=== PATIENT | female | born 1940 | race Caucasian/White ===

== ENCOUNTER 2016-11-17 16:51 | Emergency (ER) | payer OTHER ==
[2016-11-17 17:04] VITALS: TEMP 98.6; O2SAT 97
--- NOTE | 2016-11-17 17:40 | EDPHY ---
HPI/HX/ROS/PE/MDM Narrative: CHIEF COMPLAINT: Shortness of breath. HISTORY OF PRESENT ILLNESS: The patient is a 76-year-old female presenting with shortness of breath s/p abdominal surgery 11/07. The patient had a second repair of a hiatal hernia. Over the past few days the patient has developed shortness of breath on exertion. She feels short of breath when just walking around her living room. She has associated dizziness and lightheadedness. The patient spoke to her hand coper and saw her PCP today. She was sent here to rule out pulmonary embolism. The patient has no history of PE or DVT. She does have atrial fibrillation which she states causes shortness of breath similar to what she is experiencing. The patient has been on an all liquid diet. She is not on anticoagulants. She denies lower extremity pain or swelling. No fever, cold, or cough. She denies chest pain, palpitations, vomiting, diarrhea, or urinary complaints. REVIEW OF SYSTEMS: Aside from elements discussed in the HPI, a comprehensive 10-point review of systems was reviewed and is negative. PAST MEDICAL HISTORY: Hiatal hernia repair. SOCIAL HISTORY: Nonsmoker. VITAL SIGNS: Reviewed by me GENERAL: Well-developed, well-nourished, resting comfortably in no respiratory distress. HEENT: Atraumatic. Eyes: No icterus, no injection. Mouth: moist mucous membranes. No erythema or lesions. Neck: supple with no adenopathy. LUNGS: Clear to auscultation bilaterally, no wheezes, rhonchi or rales. CARDIAC: Regular rate and rhythm, no rubs, murmurs or gallops. ABDOMEN: Soft, nontender, nondistended, bowel sounds normal. BACK: No CVA tenderness. EXTREMITIES: No trauma. No edema. Range of motion is normal throughout. NEURO: Alert and oriented, grossly nonfocal. SKIN: Warm and dry, no rash. PSYCHIATRIC: Normal mentation, no agitation. Portions of this note were transcribed by a medical review specialist. I personally performed a history, physical exam, medical decision making, and confirmed accuracy of information the transcribed note. ED Course: The patient is a 76-year-old female s/p hiatal hernia repair, presenting with shortness of breath. The patient fells asymptomatic at rest, but states symptoms become more severe with exertion. On exam the patient has clear lungs. Her abdomen is slightly distended, she has multiple healing incisions. Plan for CT to look for PE. I will check labs and EKG. The 12 lead EKG was interpreted by myself. See hard copy and/or "tracemaster" electronic copy for interpretation. Sinus rhythm. The differential diagnosis for the patient's shortness of breath and hypoxemia included but was not limited to pneumonia, myocardial infarction, postsurgical atelectasis, cardiac causes, congestive heart failure, and pulmonary embolus. CT of the chest was obtained. I viewed the images myself on the PACS system. No PE. See the full radiology report in the imaging section. 8:15 p.m.: Lab work is unremarkable. CT is negative for PE, but does demonstrate atelectasis. I discussed findings with the patient. She agrees with plan to be discharged home. Patient was encouraged to use incentive spirometer. She should return or follow up with her primary care physician if she develops a fever, cough, worsening shortness of breath, swelling in the legs , or other concerns. - Data Points Imaging Results: Imaging Impressions Chest/Thorax CTA 11/17/16 17:48 Impression: 1. No evidence pulmonary thromboembolic disease. 2. Right basilar atelectasis and elevation of the right hemidiaphragm. No central mucous plugging or right hilar mass. 3. No edema, pneumonia, or effusion. 4. Postsurgical changes at the esophagogastric junction within normal limit. 5. Left lower lobe pulmonary nodule, unchanged. Findings discussed with Emergency Department physician, Kadie Caraballo M.D., on November 17, 2016 at 2000 hours. Laboratory Results: Laboratory Results 11/17/16 18:51 11/17/16 18:51 11/17/16 11/17/16 11/17/16 18:51 18:51 18:51 WBC 6.89 10^3/uL 10^3/uL (3.80-9.50) RBC 4.46 10^6/uL 10^6/uL (4.18-5.33) Hgb 13.8 g/dL g/dL (12.6-16.3) Hct 41.1 % % (38.0-47.0) MCV 92.2 fL fL (81.5-99.8) MCH 30.9 pg pg (27.9-34.1) MCHC 33.6 g/dL g/dL (32.4-36.7) RDW 12.9 % % (11.5-15.2) Plt Count 268 10^3/uL 10^3/uL (150-400) MPV 9.6 fL fL (8.7-11.7) Neut % (Auto) 60.5 % % (39.3-74.2) Lymph % (Auto) 24.2 % % (15.0-45.0) Bill[place] % (Auto) 12.6 % % (4.5-13.0) Eos % (Auto) 1.9 % % (0.6-7.6) Baso % (Auto) 0.4 % % (0.3-1.7) Nucleat RBC Rel Count 0.0 % % (0.0-0.2) Absolute Neuts (auto) 4.16 10^3/uL 10^3/uL (1.70-6.50) Absolute Lymphs (auto) 1.67 10^3/uL 10^3/uL (1.00-3.00) Absolute Monos (auto) 0.87 10^3/uL H 10^3/uL (0.30-0.80) Absolute Eos (auto) 0.13 10^3/uL 10^3/uL (0.03-0.40) Absolute Basos (auto) 0.03 10^3/uL 10^3/uL (0.02-0.10) Absolute Nucleated RBC 0.00 10^3/uL 10^3/uL (0-0.01) Immature Gran % 0.4 % % (0.0-1.1) Immature Gran # 0.03 10^3/uL 10^3/uL (0.00-0.10) PT 14.6 SEC SEC (12.0-15.0) INR 1.15 (0.83-1.16) Sodium 133 mEq/L L mEq/L (134-144) Potassium 4.4 mEq/L mEq/L (3.5-5.2) Chloride 99 mEq/L mEq/L (97-110) Carbon Dioxide 22 mEq/l mEq/l (22-31) Anion Gap 12 mEq/L mEq/L (8-16) BUN 12 mg/dL mg/dL (7-23) Creatinine 0.8 mg/dL mg/dL (0.6-1.0) Estimated GFR > 60 Glucose 73 mg/dL mg/dL (70-100) Calcium 9.8 mg/dL mg/dL (8.5-10.4) Total Bilirubin 0.9 mg/dL mg/dL (0.1-1.4) Conjugated Bilirubin 0.5 mg/dL mg/dL (0.0-0.5) Unconjugated Bilirubin 0.4 mg/dL mg/dL (0.0-1.1) AST 30 IU/L IU/L (14-46) ALT 45 IU/L IU/L (9-52) Alkaline Phosphatase 61 IU/L IU/L (38-126) Troponin I < 0.012 ng/mL ng/mL (0-0.034) Total Protein 7.2 g/dL g/dL (6.3-8.2) Albumin 4.4 g/dL g/dL (3.5-5.0) Medications Given: Discontinued Medications Sodium Chloride (Ns) 500 mls @ 0 mls/hr IV ONCE ONE PRN Reason: As Directed Stop: 11/17/16 17:46 Last Admin: 11/17/16 18:57 Dose: 500 mls General Time Seen by Provider: 11/17/16 17:24 Initial Vital Signs: Initial Vital Signs Temperature (C) 37 C 11/17/16 17:00 Heart Rate 82 11/17/16 17:00 Respiratory Rate 18 11/17/16 17:00 Blood Pressure 150/99 H 11/17/16 17:00 O2 Sat (%) 97 11/17/16 17:00 O2 Delivery Mode Room Air Allergies/Adverse Reactions: oxycodone Allergy (Mild, Verified 11/17/16 17:01) Vomiting Home Medications: Medication Instructions Recorded Aspirin EC [Aspirin EC 81 mg (*)] 81 mg PO DAILY 10/29/15 Bupropion HCl [Wellbutrin Xl] 300 mg PO DAILY 10/29/15 Esomeprazole Mag Trihydrate 40 mg PO DAILY 10/29/15 [Nexium] Ferrous Sulfate [Ferrous Sulf 325 325 mg PO DAILY 10/29/15 MG (*)] Herbals/Supplements -Info Only 1 ea PO DAILY 10/29/15 Levothyroxine [Synthroid 88 mcg 88 mcg PO DAILY06 10/29/15 (*)] Magnesium Oxide [Magnesium] 500 mg PO DAILY 10/29/15 Multivitamins W-Minerals [Thera M 1 each PO DAILY 10/29/15 Plus Tablet (*)] Vitamin B Complex [B Complex] 1 each PO DAILY 10/29/15 Polyethylene Glycol 3350 [Miralax 17 gm PO DAILY PRN #0 pkt 11/25/15 17 gm (*)] Sennosides/Docusate Sodium 1 - 2 tab PO BID #0 tab 11/25/15 [Senokot-S] Tapentadol HCl [Nucynta 50 MG (*)] 50 mg PO Q4 PRN #30 tab 11/25/15 traMADol [Ultram 50 mg (*)] 50 mg PO Q6 PRN #30 tab 11/25/15 Departure - Departure Disposition: Home, Routine, Self-Care Clinical Impression: Shortness of breath, Atelectasis, right Condition: Good Instructions: How to Use an Incentive Spirometer (ED), Dyspnea (ED), Atelectasis (ED) Additional Instructions: 1. Please begin using the incentive spirometry several times a day as directed. 2. Follow up with your primary care physician if you're shortness of breath is not resolving in the next 1-2 days. 3. Be seen urgently if you develop a fever, worsening shortness of breath, anterior chest pain, lightheadedness, dizziness, fainting, or other concerns. Referrals: Mandy Estrada MD [Primary Care Provider] - As per Instructions Report Scribed for: Kadie Caraballo Report Scribed by: Agatha Briceño Date of Report: 11/17/16 Time of Report: 17:41
[2016-11-17] MEDS ORDERED: NS 500 ML IV ONE (17:45)
[2016-11-17 18:58] LABS: % IMMATURE GRANULYOCYTES 0.4 % (0.0-1.1); ABSOLUTE IMMATURE GRANULOCYTES 0.03 10^3/uL (0.00-0.10); ADD DIFF? NO; ADD MORPH? NO; ADD SCAN? NO; ATYPICAL LYMPHOCYTE FLAG 0 (0-99); FRAGMENT RBC FLAG 20 (0-99); HEMATOCRIT 41.1 % (38.0-47.0); HEMOGLOBIN 13.8 g/dL (12.6-16.3); LEFT SHIFT FLG 0 (0-99); LIPEMIA HEMOLYSIS FLAG 80 (0-99); MEAN CELL HEMOGLOBIN 30.9 pg (27.9-34.1); MEAN CELL HEMOGLOBIN CONCENTR. 33.6 g/dL (32.4-36.7); MEAN CELL VOLUME 92.2 fL (81.5-99.8); MEAN PLATELET VOLUME 9.6 fL (8.7-11.7); PLATELET CLUMPS FLAG 20 (0-99); PLATELET COUNT 268 10^3/uL (150-400); RED BLOOD CELL COUNT 4.46 10^6/uL (4.18-5.33); RED CELL DISTRIBUTION WIDTH 12.9 % (11.5-15.2)
[2016-11-17 19:09] LABS: ALANINE AMINOTRANSFERASE 45 IU/L (9-52); ALBUMIN 4.4 g/dL (3.5-5.0); ALKALINE PHOSPHATASE 61 IU/L (38-126); ANION GAP 12 mEq/L (8-16); ASPARTATE AMINOTRANSFERASE 30 IU/L (14-46); BILIRUBIN,TOTAL 0.9 mg/dL (0.1-1.4); BILIRUBIN-CONJUGATED 0.5 mg/dL (0.0-0.5); BILIRUBIN-UNCONJUGATED 0.4 mg/dL (0.0-1.1); CALCIUM 9.8 mg/dL (8.5-10.4); CARBON DIOXIDE 22 mEq/l (22-31); CHLORIDE 99 mEq/L (97-110); CREATININE 0.8 mg/dL (0.6-1.0); GLOMERULAR FILTRATION RATE > 60; GLUCOSE 73 mg/dL (70-100); INR 1.15 (0.83-1.16); POTASSIUM 4.4 mEq/L (3.5-5.2); PROTIME(PATIENT) 14.6 SEC (12.0-15.0); SODIUM 133 mEq/L (134-144); TOTAL PROTEIN 7.2 g/dL (6.3-8.2)
[2016-11-17] MEDS ORDERED: IOPAMIDOL (ISOVUE 370) 100 ML BTL IV ONE (19:13)
[2016-11-17 19:20] LABS: TROPONIN I < 0.012 ng/mL (0-0.034)
[2016-11-17 20:17] VITALS: BP 148/80; PULSE 74; RESP 17
--- NOTE | 2016-11-18 02:42 | CPEKG ---
Heart Rate: 75 RR Interval: 800 P-R Interval: 176 QRSD Interval: 98 QT Interval: 408 QTC Interval: 456 P [place]: 68 QRS [place]: 66 T Wave [place]: 15 EKG Severity - NORMAL ECG - EKG Impression: SINUS RHYTHM Electronically Signed By: Horace Lancaster 18-Nov-2016 08:51:18
== END 2016-11-17 20:54 | disposition home or self-care (01) ==
DX: J98.11 Atelectasis (principal); Z79.82 Long term (current) use of aspirin
CPT/HCPCS: 71275; 93005; 99285; Q9967

== ENCOUNTER 2017-05-01 10:59 | Day surgery (SDC) | payer OTHER ==
[2017-05-01] MEDS ORDERED: LR 1,000 ML IV ONE (11:44)
[2017-05-01] MEDS ORDERED: LIDOCAINE 1% 2 ML INJ ID PRN (11:44)
[2017-05-01] MEDS ORDERED: BUPIVACAINE 0.5% 30 ML SDV ONE (11:59)
[2017-05-01] MEDS ORDERED: POLYMYXIN B SULFATE 500,000 UNIT/10 ML SYR IRR ONE (11:59)
[2017-05-01] MEDS ORDERED: BACITRACIN 50,000 UNITS/10 ML SYR IRR ONE (12:00)
[2017-05-01] MEDS ORDERED: PROPOFOL/EMULSION 500 MG/50 ML BOTTLE IV ONE ×2 (12:13→14:02)
[2017-05-01] MEDS ORDERED: fentaNYL 100 MCG/2 ML INJ ONE ×2 (12:16→12:17)
[2017-05-01] MEDS ORDERED: MIDAZOLAM 2 MG/2 ML VIAL ONE (12:36)
[2017-05-01] MEDS ORDERED: MIDAZOLAM 2 MG/2 ML VIAL IVP ONE (12:43)
--- NOTE | 2017-05-01 12:43 | PDANEPAE ---
ANE History of Present Illness 77 yerar old woman for bilateral bunionectomy. ANE Past Medical History - Cardiovascular History Hx Hypertension: No Hx Arrhythmias: No Hx Chest Pain: No Hx Coronary Artery / Peripheral Vascular Disease: No Hx CHF / Valvular Disease: No Hx Palpitations: No Cardiovascular History Comment: AFIB CARDIO ABLATION - Pulmonary History Hx COPD: No Hx Asthma/Reactive Airway Disease: No Hx Recent Upper Respiratory Infection: No Hx Oxygen in Use at Home: No Hx Sleep Apnea: No Sleep Apnea Screening Result - Last Documented: Negative Pulmonary History Comment: HX LEFT LOWER LUNG HAS SPOT FOR MANY YEARS - Neurologic History Hx Cerebrovascular Accident: No Hx Seizures: No Hx Dementia: No - Endocrine History Hx Diabetes: Yes Endocrine History Comment: HYPOTHYROID - Renal History Hx Renal Disorders: Yes Renal History Comment: RECURRENT UTIs SINCE 12/2016 - Liver History Hx Hepatic Disorders: No - Neurological & Psychiatric Hx Hx Neurological and Psychiatric Disorders: Yes Neurological / Psychiatric History Comment: DEPRESSION - Cancer History Hx Cancer: No - Congenital Disorder History Hx Congenital Disorders: No - GI History Hx Gastrointestinal Disorders: No Gastrointestinal History Comment: BARRETS ESOPHAGUS - Other Health History Other Health History: ANEMIA IN PAST - Chronic Pain History Chronic Pain: Yes (ARTHRITIS) - Surgical History Prior Surgeries: BACK SURGERYL4 L5 S1. CARDIO ABLATION FOR AFIB. FEMORAL HERNIA AND INGUINAL BILAT F00T SURGERIES. HYSTERECTOMY ANE Review of Systems Review of Systems: - Exercise capacity METS (RN): 4 METS ANE Patient History - Allergies Allergies/Adverse Reactions: oxycodone Allergy (Mild, Verified 11/17/16 17:01) Vomiting - Home Medications Home Medications: Aspirin EC [Aspirin EC 81 mg (*)] 81 mg PO DAILY 10/29/15 [Last Taken Unknown] Herbals/Supplements -Info Only 1 ea PO DAILY 10/29/15 [Last Taken 04/10/17] Levothyroxine [Synthroid 88 mcg (*)] 88 mcg PO DAILY06 10/29/15 [Last Taken ] Magnesium Oxide [Magnesium] 500 mg PO DAILY 10/29/15 [Last Taken 04/10/17] Multivitamins W-Minerals [Thera M Plus Tablet (*)] 1 each PO DAILY 10/29/15 [ Last Taken 04/10/17] Vitamin B Complex [B Complex] 1 each PO DAILY 10/29/15 [Last Taken 04/10/17] Estrace Vaginal (*) 04/26/17 [Last Taken Unknown] FLUoxetine 04/26/17 [Last Taken 05/01/17] Methenamine Saadia 04/26/17 [Last Taken Unknown] - NPO status NPO Since - Liquids (Date): 04/23/11 NPO Since - Liquids (Time): 22:00 NPO Since - Solids (Date): 04/30/17 NPO Since - Solids (Time): 20:00 - Smoking Hx Smoking Status: Former smoker - Family Anes Hx Family Hx Anesthesia Complications: NEG ANE Labs/Vital Signs - Vital Signs Blood Pressure: 134/68 Heart Rate: 71 Respiratory Rate: 16 O2 Sat (%): 95 Height: 172.72 cm Weight: 90.718 kg ANE Physical Exam - Airway Mallampati Score: Class 2 Mouth exam: normal dental/mouth exam - Pulmonary Pulmonary: no respiratory distress - Cardiovascular Cardiovascular: regular rate and rhythym - ASA Status ASA Status: II ANE Anesthesia Plan Anesthesia Plan: MAC
--- NOTE | 2017-05-01 16:04 | PDHPUP ---
History & Physical Update H&P update statement: This history and physical update is based on an assessment of the patient which was completed after admission or registration (within 24 hours), but prior to the surgery/procedure. H&P changes: no changes
[2017-05-01 16:40] VITALS: TEMP 99
[2017-05-01 17:07] VITALS: PULSE 66
[2017-05-01 17:27] VITALS: BP 129/77; RESP 14; O2SAT 95
--- NOTE | 2017-05-02 12:37 | GOP ---
[f rep st] OPERATIVE REPORT DATE OF OPERATION: 05/01/2017 SURGEON: Deion Villanueva DPM ELECTRIC SOLDERER: None. ANESTHESIA: MAC with local, 30 mL 0.5% Marcaine plain each foot. PREOPERATIVE DIAGNOSIS: 1. Hallux valgus bilaterally. 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 4. Contracted digits 2 through 4 bilaterally. 5. Subluxation of second metatarsophalangeal joint, right foot. 6. Metatarsalgia, second metatarsal, right foot. POSTOPERATIVE DIAGNOSIS: 1. Hallux valgus bilaterally. 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 4. Contracted digits 2 through 4 bilaterally. 5. Subluxation of second metatarsophalangeal joint, right foot. 6. Metatarsalgia, second metatarsal, right foot. PROCEDURE PERFORMED: 1. Bunionectomy bilateral. 2. First metatarsal osteotomy with bone graft, bilateral. 3. Osteotomy of first proximal phalanx of the hallux bilaterally. 4. Repair hammertoes 2 through 4 bilaterally with proximal interphalangeal joint fusion. 5. Open repair metatarsophalangeal joint dislocation, second metatarsophalangeal joint, right foot. 6. Osteotomy of second metatarsal, right foot. 7. Extensor tendon lengthening, second digit, right foot. 8. Repair flexor tendon secondarily, second digit, right foot. 9. Transfer of flexor tendon, second digit, right foot. FINDINGS: Rupture of plantar plate 2nd metatarsophalangeal joint, right foot. All other gross findin gs are consistent with the diagnoses. ESTIMATED BLOOD LOSS: 0 mL. DESCRIPTION OF PROCEDURE: After identification, the patient was brought in the operating room, place d on the operating table in the supine position. Following IV sedation, local anesthesia was obtained around the patient's bilateral feet utilizing a total of 50 mL 0.5% Marcaine plain. Both feet were t hen scrubbed, prepped, and draped in usual aseptic manner. Pneumatic ankle tourniquet was placed arou nd the patient's ankle bilaterally using ample padding. An Esmarch bandage was utilized to first exsa nguinate the patient's left foot and the pneumatic ankle tourniquet was inflated. Attention was first directed to the patient's left foot where a 5 cm linear longitudinal incision was made at the medial aspect of the 1st metatarsophalangeal joint. This incision was deepened through t he subcutaneous tissue with care being taken to identify and retract all vital neural and vascular st ructures. Bleeders were ligated and cauterized as necessary. This incision was deepened to the level of the 1st metatarsophalangeal joint capsule where a lenticular capsulorrhaphy was performed at the m edial aspect of the joint. This lenticular piece of capsule was passed from the operative field. Caps ular structures were reflected dorsally and plantarly thus exposing the 1st metatarsophalangeal joint at the operative site. A McGlamry elevator was then inserted from medial to lateral in the 1st metat arsophalangeal joint which served as a lateral ligamentous release. The 1st great toe was then noted to be more mobile and reducible into a more medial and corrected position. Attention was then directe d to the 1st metatarsal where using an osteotomy guide, a [id number] Z-shaped osteotomy was performed in the head, neck, and shaft of the 1st metatarsal bone. Upon completion of this medial to lateral osteotomy, the capital fragment is translated into a more lateral and corrected position on t he shaft of the 1st metatarsal. After temporary fixation, two 2.5 headless Arthrex screws were driven obliquely across this osteotomy site to serve as stable fixation. Redundant bone shelf was then zulma paulo and passed from the operative field. A portion of this bone was remodeled, reinserted into the os teotomy site to serve as a bone graft. All rough edges were then smoothed with a bone rasp. Position of the great toe was evaluated at this time and noted to be still in a valgus position. Attention was directed to the medial aspect of the base of the 1st proximal phalanx, left foot, where a medially-b ased wedge-shaped osteotomy was performed. Upon completion of this osteotomy leaving the lateral perlita ex intact, the wedge of bone was removed, passed from the operative field. This osteotomy site was th en closed on itself translating the hallux into a more medial and corrected position. A 2.5 headless Arthrex screw was driven obliquely across this osteotomy site to serve as stable fixation. Position o f the 1st ray is noted to be excellent at this time. The incision site was then closed starting with the capsule. It was closed with 2-0 Vicryl, subcutaneous tissue closed with 3-0 Vicryl, and the skin closed with 5-0 Vicryl in a running subcuticular suture technique. Attention was then directed to toes 2 through 4 of the left foot where an identical procedure was per formed on each toe. A 2 cm linear longitudinal incision was made over the dorsal aspect of toes 2 thr ough 4. These incisions were deepened through the subcutaneous tissue with care being taken to identi fy and retract all vital neural and vascular structures. Bleeders were ligated and cauterized as nece ssary. Incision was deepened to the level of the capsular tendinous structure where a transverse teno esequiel and capsulotomy was performed at the dorsal aspect of the proximal interphalangeal joint. Capsul ar structures were reflected distally and proximally thus exposing the head of the proximal phalanx a nd the base of the middle phalanx in digits 2 through 4. Using a sagittal saw, the head of the proxim al phalanx and the base of the middle phalanx were resected and passed from the operative field. An a bsorbable Trim-It K-wire was then driven proximally into the proximal phalanx and cut leaving approxi mately 5 mm overhanging distally. The middle phalanx was then skewered over the absorbable K-wire ser ving as stable fixation. Position of digits 2 through 4 left foot are noted to be excellent and fixat ion is noted to be secure at this time. The incision sites were then flushed with normal sterile sali ne solution. The capsular tendon structures were reapproximated with 3-0 Vicryl, subcutaneous tissue reapproximated with 3-0 Vicryl, and the skin reapproximated with 5-0 Vicryl in a running subcuticular suture technique. The incision sites were then dressed with Steri-Strips, Adaptic, 4 x 4 gauze, Klin g, Sonido bandage. The pneumatic ankle tourniquet was then deflated and attention was directed to the ri ght foot. Upon directing attention to the right foot, an identical procedure was performed on the rig ht foot, as was on the left. No omissions to this procedure at this time. There was an addition to th is procedure and the addition is as follows. Attention was directed to the dorsal aspect of the 2nd metatarsophalangeal joint, right foot. A 4 cm linear longitudinal incision was made over the 2nd metatarsophalangeal joint. This incision was deepe francesca through the subcutaneous tissue with care being taken to identify and retract all vital neural an d vascular structures. Bleeders were ligated and cauterized as necessary. The incision was deepened t o the level of the joint capsule where a linear capsulotomy was performed. A Z-lengthening of the ext ensor digitorum longus tendon was also performed at this time, the tendon was then reapproximated wit h 2-0 Vicryl. The capsular and tendon structures were reflected medially and laterally thus exposing the 2nd metatarsophalangeal joint at the operative site. A Lulú oblique osteotomy from dorsal distal to plantar proximal was performed in the head, neck, and shaft of the 2nd metatarsal bone. Upon compl etion of this osteotomy, the head was retracted proximally and temporarily fixated thus exposing the plantar plate structure at the 2nd metatarsophalangeal joint. This plantar plate structure was evalua ana lilia at this time and noted to be approximately 40% ruptured in the central lateral aspect. This ruptu re was then completed with a [place] blade, the plantar plate structures reflected proximally, thus ex posing the flexor tendons at this time. The flexor tendons were noted to be partially ruptured and we re repaired with a 2-0 Vicryl. Next, the plantar plate structure and flexor tendon struct ures were gathered with a suture passing instrument, then transferred to the base of the 2nd proximal phalanx and inserted through 2 crossing drill holes in the base of the proximal phalanx. This FiberW risa was then passed through these crossing drill holes and tied at the dorsal aspect of the 2nd proxi mal phalanx serving as a stable fixation and transfer of the plantar plate structure and flexor tendo n structures to the base of the 2nd proximal phalanx. The 2nd metatarsal was then brought back out to length in a slightly 2 mm shortened position and fixated with two 2.0 snap-off Arthrex screws. Fixat ion of both the 2nd metatarsal and the plantar plate and flexor tendon structures is noted to be exce llent at this time. Position of the 2nd metatarsophalangeal joint and 2nd digit was noted to be excel lent at this time. The incision was then flushed with normal sterile saline solution. The capsular structures were reapp roximated utilizing 3-0 Vicryl, subcutaneous tissue reapproximated utilizing 3-0 Vicryl, and the skin reapproximated using 5-0 nylon in a running subcuticular suture technique. All incisions on the righ t foot were then dressed with Steri-Strips, Adaptic, 4 x 4 gauze, Siobhan, Sonido bandage. The patient was then transferred to the postoperative recovery with vital signs stable and vascular s tatus intact to the bilateral feet. The patient tolerated the procedure and anesthesia well. HEMOSTASIS: Right pneumatic ankle tourniquet inflated to 250 mmHg for 80 minutes, left pneumatic ank le tourniquet inflated to 250 mmHg for 60 minutes. MATERIALS: 2-0, 3-0, 5-0 Vicryl. 2.5 headless Arthrex screw x6. Arthrex CPR kit x1. INJECTABLES: None. CONDITION: Stable. /[id number]/MODL
== END 2017-05-01 17:35 | disposition home or self-care (01) ==
LOC: FSGY 10:59
PROVIDERS: ATTEND Podiatrist
PROC: 0QBN0ZZ Excision of Right Metatarsal, Open Approach (ICD-10-PCS; principal; 2017-05-01 12:45)
PROC: 0LQV0ZZ Repair Right Foot Tendon, Open Approach (ICD-10-PCS; principal; 2017-05-01 12:45)
PROC: 0QBR0ZZ Excision of Left Toe Phalanx, Open Approach (ICD-10-PCS; principal; 2017-05-01 12:45)
PROC: 0Q8P0ZZ Division of Left Metatarsal, Open Approach (ICD-10-PCS; principal; 2017-05-01 12:45)
PROC: 0QBQ0ZZ Excision of Right Toe Phalanx, Open Approach (ICD-10-PCS; principal; 2017-05-01 12:45)
DX: M20.12 Hallux valgus (acquired), left foot (principal); M20.11 Hallux valgus (acquired), right foot; Q74.2 Other congenital malformations of lower limb(s), including pelvic girdle; S93.144A Subluxation of metatarsophalangeal joint of right lesser toe(s), initial encounter
CPT/HCPCS: 28202; 28210; 28285; 28299; C1769; C1713; J2250; J2704; J3010